=== PATIENT | female | born 1945 | race Caucasian/White ===

== ENCOUNTER 2024-07-10 15:38 | Emergency (ER) | payer OTHER ==
[2024-07-10 15:57] VITALS: BP 166/91; PULSE 79; RESP 18; TEMP 98.3; BMI 28.5
[2024-07-10 18:04] LABS: POTASSIUM 3.5 mmol/L (3.5-5.1)
[2024-07-10 18:06] LABS: CALCIUM 9.2 mg/dL (8.5-10.1)
[2024-07-10 18:07] LABS: BLOOD UREA NITROGEN 12.4 mg/dL (7-18)
[2024-07-10 18:10] LABS: CREATININE 0.6 mg/dL (0.55-1.3)
[2024-07-10 18:11] LABS: BILIRUBIN,TOTAL 0.4 mg/dL (0.2-1)
[2024-07-10 18:12] LABS: TOT PROT 7.7 g/dl (6.4-8.2)
== END 2024-07-10 19:01 | disposition home or self-care (01) ==
LOC: JER 15:38
DX: M79.605 Pain in left leg (principal); M79.89 Other specified soft tissue disorders; M54.50 Low back pain, unspecified; E11.40 Type 2 diabetes mellitus with diabetic neuropathy, unspecified
CPT/HCPCS: 36415; 80053; 83036; 99283-25